=== PATIENT | male | born 1995 | race Two or more races ===

== ENCOUNTER 2019-01-16 17:47 | Emergency (ER) | payer SELFPAY ==
[~2019-01-16] VITALS: Ht 167.6 cm; Wt 54.4 kg
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
--- NOTE | 2019-01-16 18:18 | NUR ---
ED Nurse Note: Pt down to CT and X-ray for imaging.
--- NOTE | 2019-01-16 18:43 | Diagnostic Imaging Report ---
EXAM: CT Head Without Intravenous Contrast CLINICAL HISTORY: TRAUMA TECHNIQUE: Axial computed tomography images of the head/brain without intravenous contrast. CTDI is 70.38 mGy and DLP is 1375 mGy-cm. One or more of the following dose reduction techniques were used: automated exposure control, adjustment of the mA and/or kV according to patient size, use of iterative reconstruction technique. COMPARISON: No relevant prior studies available. FINDINGS: Brain: No visualized acute intracranial hemorrhage or cortical edema. No mass effect. No significant white matter disease. Ventricles: Unremarkable. No ventriculomegaly. Bones/joints: Unremarkable. No acute fracture. Soft tissues: Unremarkable. Sinuses: Unremarkable as visualized. No acute sinusitis. Mastoid air cells: Unremarkable as visualized. No mastoid effusion. IMPRESSION: No acute intracranial findings.
[2019-01-16 18:44] VITALS: BP 112/58
--- NOTE | 2019-01-16 19:24 | Diagnostic Imaging Report ---
EXAM: CT Cervical Spine Without Intravenous Contrast CLINICAL HISTORY: TRAUMA TECHNIQUE: Axial computed tomography images of the cervical spine without intravenous contrast. CTDI is 10.47 mGy and DLP is 227 mGy-cm. One or more of the following dose reduction techniques were used: automated exposure control, adjustment of the mA and/or kV according to patient size, use of iterative reconstruction technique. COMPARISON: No relevant prior studies available. FINDINGS: Vertebrae: Unremarkable. No acute fracture. Discs/spinal canal/neural foramina: No acute findings. No spinal canal stenosis. Soft tissues: Unremarkable. Thyroid: Heterogeneous thyroid. Lung apices: Paraseptal emphysematous changes in the upper lungs. IMPRESSION: No CT evidence for cervical spine injury. Nonacute findings as above.
--- NOTE | 2019-01-16 19:40 | Diagnostic Imaging Report ---
EXAM: CT Abdomen and Pelvis Without Intravenous Contrast CLINICAL HISTORY: TRAUMA TECHNIQUE: Axial computed tomography images of the abdomen and pelvis without intravenous contrast. CTDI is 9.82 mGy and DLP is 655 mGy-cm. One or more of the following dose reduction techniques were used: automated exposure control, adjustment of the mA and/or kV according to patient size, use of iterative reconstruction technique. Coronal and sagittal reformatted images were created and reviewed. COMPARISON: No relevant prior studies available. FINDINGS: Limitations: Limited evaluation of the viscera on unenhanced imaging. Lung bases: Unremarkable. No mass. No consolidation. ABDOMEN: Liver: The liver demonstrates no obvious parenchymal abnormality on unenhanced imaging or subcapsular fluid/hemorrhage. Gallbladder and bile ducts: Unremarkable. No calcified stones. No ductal dilation. Pancreas: Unremarkable. No ductal dilation. Spleen: No obvious perisplenic fluid or parenchymal abnormality on unenhanced imaging. Adrenals: Unremarkable. No mass. Kidneys and ureters: Unremarkable. No obstructing stones. No hydronephrosis. Stomach and bowel: Unremarkable. No obstruction. No mucosal thickening. PELVIS: Appendix: No findings to suggest acute appendicitis. Bladder: Unremarkable. No stones. Reproductive: Unremarkable as visualized. ABDOMEN and PELVIS: Intraperitoneal space: Unremarkable. No free air. No significant fluid collection. Bones/joints: No acute fracture. No dislocation. Soft tissues: Unremarkable. Vasculature: Unremarkable. No abdominal aortic aneurysm. Lymph nodes: Unremarkable. No enlarged lymph nodes. IMPRESSION: No acute unenhanced CT findings. EXAM: CT Chest Without Intravenous Contrast CLINICAL HISTORY: TRAUMA TECHNIQUE: Axial computed tomography images of the chest without intravenous contrast. CTDI is 9.82 mGy and DLP is 655 mGy-cm. One or more of the following dose reduction techniques were used: automated exposure control, adjustment of the mA and/or kV according to patient size, use of iterative reconstruction technique. COMPARISON: No relevant prior studies available. FINDINGS: Limitations: Cardiovascular structures are limitedly characterized on unenhanced imaging. Lungs: No airspace consolidation or hemorrhage. Paraseptal emphysematous changes noted at the apices. Pleural space: No visualized pneumothorax. No pleural effusion. Heart: Unremarkable. No cardiomegaly. No significant pericardial effusion. Mediastinum: Densities within the anterior mediastinum favor residual thymic tissue. Bones/joints: Defect of the sternomanubrial joint likely related to incomplete fusion. No definitive acute fracture. No dislocation. Soft tissues: Unremarkable. Vasculature: Unremarkable. No thoracic aortic aneurysm. Lymph nodes: Unremarkable. No enlarged lymph nodes. IMPRESSION: 1. No acute unenhanced CT findings. 2. Additional findings as above.
--- NOTE | 2019-01-16 19:44 | Diagnostic Imaging Report ---
EXAM: CT Lumbar Spine Without Intravenous Contrast CLINICAL HISTORY: TRAUMA TECHNIQUE: Axial computed tomography images of the lumbar spine without intravenous contrast. CTDI is 9.82 mGy and DLP is 655 mGy-cm. One or more of the following dose reduction techniques were used: automated exposure control, adjustment of the mA and/or kV according to patient size, use of iterative reconstruction technique. Coronal and sagittal reformatted images were created and reviewed. COMPARISON: No relevant prior studies available. FINDINGS: Vertebrae: No fracture or traumatic malalignment of the lumbar spine. Intervertebral disc spaces are maintained. There is partial lumbarization of the S1 vertebra. There is a chronic fragmentation at the left L1 transverse process. No spinal canal stenosis. Soft tissues: Unremarkable. IMPRESSION: No acute CT findings.
--- NOTE | 2019-01-16 20:04 | Diagnostic Imaging Report ---
EXAM: XR Left Knee, 3 views CLINICAL HISTORY: TRAUMA TECHNIQUE: Three views of the left knee. COMPARISON: No relevant prior studies available. FINDINGS: Bones/joints: Unremarkable. No acute fracture. No dislocation. Soft tissues: Prominent bandaging compressing the soft tissues at the thigh. No visualize radiopaque foreign body. Diffuse soft tissue edema. IMPRESSION: No acute osseous findings. Soft tissue edema.
--- NOTE | 2019-01-16 20:07 | Diagnostic Imaging Report ---
EXAM: XR Left Finger(s), 2 or More Views CLINICAL HISTORY: TRAUMA TECHNIQUE: Frontal, lateral and oblique views of finger(s) of the left hand. COMPARISON: No relevant prior studies available. FINDINGS: Bones/joints: Oblique subtle linear lucency at the radial sided cortex of the distal metacarpal which may be a vascular channel. No other evidence for fracture. No traumatic malalignment. Soft tissues: No significant soft tissue normalities. No radiopaque foreign body. IMPRESSION: Subtle linear lucency of the distal metacarpal cortex which could represent vascular channel or nondisplaced fracture. Correlate with focal exam.
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
[2019-01-16] MEDS ORDERED: NAPROXEN500 M2 ORAL (20:08)
[2019-01-16] MEDS ORDERED: ROBAXIN500 MG PO (20:08)
[2019-01-16 20:24] VITALS: BP 118/76
--- NOTE | 2019-01-16 20:24 | NUR ---
ED Nurse Note: Pt cleared to be d/c per ER provider, pt discharge and aftercare instruction w/ prescription provided, pt education done via discussion and handout, pt advised to follow up with pcp or return to ed if changes in condition, pt verbalized understanding and agrees with plan, vss, ambulatory w/ steady gait left w/ all belongings. pt accompanied by friend. immobilizer applied by supervisor cured meats.
== END 2019-01-16 20:24 | disposition home or self-care (01) ==
LOC: EMR 19:29
DX: S00.93XA Contusion of unspecified part of head, initial encounter (principal); S16.1XXA Strain of muscle, fascia and tendon at neck level, initial encounter; S39.012A Strain of muscle, fascia and tendon of lower back, initial encounter; S62.605A Fracture of unspecified phalanx of left ring finger, initial encounter for closed fracture; S83.92XA Sprain of unspecified site of left knee, initial encounter; V43.52XA Car driver injured in collision with other type car in traffic accident, initial encounter; Y93.9 Activity, unspecified; Y92.410 Unspecified street and highway as the place of occurrence of the external cause
CPT/HCPCS: 29130; 70450; 71250; 72125; 72131; 74176; 99284; J2405